=== PATIENT | female | born 1960 | race Caucasian/White ===

== ENCOUNTER 2022-08-18 08:33 | Outpatient (CLI) | payer OTHER, SELFPAY ==
--- NOTE | 2022-08-18 08:55 | MM_ITS ---
WS: [id number] DIAGNOSTIC BILATERAL DIGITAL BREAST TOMOSYNTHESIS MAMMOGRAPHY WITH CAD RIGHT breast ultrasound, limited. HISTORY: Palpable mass. COMPARISON: 09/04/2010 TECHNIQUE: Bilateral craniocaudad, mediolateral oblique, and mediolateral views are submitted with to mosynthesis and SM. Spot compression RIGHT CC and MLO. Computer aided detection utilized. Breast composition: There are scattered areas of fibroglandular density. Large irregular mass of incr eased density in the mid RIGHT breast at 12:00 measures 3.4 x 4.0 cm and extends over a length of 3.7 cm. There are small spiculations extending from the mass. Mild increased tubular extension toward th e nipple. This may be extension of soft tissue through the duct. No lymph nodes are identified but th e axilla are not well included. Asymmetry upper outer LEFT breast is probably normal involution of breast tissue. RIGHT breast ultrasound, limited. Large hypoechoic soft tissue mass with lobulated irregular and angular margins at 12:00, 8 cm from th e nipple. Mass measures 3.1 x 3.9 x 2.4 cm with minimal increased vascularity. Several prominent duct s extending anteriorly from the mass toward the nipple are dilated with increased soft tissue which m ay be tumor extension along the duct. In the RIGHT axilla there is a hypoechoic mass which is probably an abnormal lymph node. The normal r eniform shape and appearance is no longer present and has been replaced. This mass measures 3.8 x 3.9 x 2.7 cm. There is additional enlarged lymph node or dumbbell shaped. MM/[place] [id number] IMPRESSION: BI-RADS: 5-Highly Suggestive of Malignancy FOLLOW UP: Biopsy Recommended 1. Ultrasound-guided biopsy recommended of the soft tissue mass RIGHT breast a t 12:00. 2. RIGHT axillary lymphadenopathy. Recommend ultrasound-guided biopsy also. Notified Sagrario Velázquez at 08/18/2022 10:46 AM.
--- NOTE | 2022-08-18 09:50 | US_ITS ---
WS: [id number] DIAGNOSTIC BILATERAL DIGITAL BREAST TOMOSYNTHESIS MAMMOGRAPHY WITH CAD RIGHT breast ultrasound, limited. HISTORY: Palpable mass. COMPARISON: 09/04/2010 TECHNIQUE: Bilateral craniocaudad, mediolateral oblique, and mediolateral views are submitted with to mosynthesis and SM. Spot compression RIGHT CC and MLO. Computer aided detection utilized. Breast composition: There are scattered areas of fibroglandular density. Large irregular mass of incr eased density in the mid RIGHT breast at 12:00 measures 3.4 x 4.0 cm and extends over a length of 3.7 cm. There are small spiculations extending from the mass. Mild increased tubular extension toward th e nipple. This may be extension of soft tissue through the duct. No lymph nodes are identified but th e axilla are not well included. Asymmetry upper outer LEFT breast is probably normal involution of breast tissue. RIGHT breast ultrasound, limited. Large hypoechoic soft tissue mass with lobulated irregular and angular margins at 12:00, 8 cm from th e nipple. Mass measures 3.1 x 3.9 x 2.4 cm with minimal increased vascularity. Several prominent duct s extending anteriorly from the mass toward the nipple are dilated with increased soft tissue which m ay be tumor extension along the duct. In the RIGHT axilla there is a hypoechoic mass which is probably an abnormal lymph node. The normal r eniform shape and appearance is no longer present and has been replaced. This mass measures 3.8 x 3.9 x 2.7 cm. There is additional enlarged lymph node or dumbbell shaped. US/US breast RT limited* [id number] IMPRESSION: BI-RADS: 5-Highly Suggestive of Malignancy FOLLOW UP: Biopsy Recommended 1. Ultrasound-guided biopsy recommended of the soft tissue mass RIGHT breast a t 12:00. 2. RIGHT axillary lymphadenopathy. Recommend ultrasound-guided biopsy also. Notified Crystal Eber at 08/18/2022 10:46 AM.
== END 2022-08-18 08:34 | disposition home or self-care (01) ==
PROVIDERS: PCP Family Medicine; Visit Provider Nurse Practitioner Family
DX: N63.15 Unspecified lump in the right breast, overlapping quadrants (principal)
CPT/HCPCS: 76642; 77062; G0279

== ENCOUNTER 2022-09-22 12:03 | Outpatient (CLI) | payer OTHER, SELFPAY ==
--- NOTE | 2022-09-22 | US_ITS ---
WS: [id number] ULTRASOUND-GUIDED RIGHT BREAST BIOPSY CLINICAL INFORMATION: MASS OF R BREAST COMPARISON: August 18, 2022 FINDINGS: The procedure including risks, benefits, and complications were discussed with the patient who agreed to proceed. Using sterile technique patient was prepped and draped in the usual sterile fashion. Aft er 1% lidocaine utilizing real-time ultrasound guidance 5 14-gauge cores were obtained of the RIGHT b reast lesion at the 12 o'clock position 8 cm from the nipple. Subsequently a titanium clip was placed in the biopsy cavity. No immediate complications. Ultrasound of the RIGHT axilla demonstrates a large axillary masslike lymph node measuring 3.7 x 3.8 x 2.7 cm with an additional adjacent abnormal lymph node measuring 1.4 x 2.6 x 1.9 CM. Next the largest axillary mass/lymphadenopathy measuring 3.8 cm was selected for biopsy. Three 14-gauge samples were obtained and placed in saline. Titanium clip was placed in the biopsy cav ity. PATHOLOGY DEMONSTRATES RIGHT BREAST MASS: A. Breast, right, 12 o'clock, 8 cm from nipple, ultrasound-guided biopsy: - Poorly differentiated invasive ductal carcinoma. - Smith Hair grade 3 (score 9). 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 - Breast prognostic profile has been performed on lobe reported separately. RIGHT AXILLARY MASS/LYMPHADENOPATHY: Metastatic carcinoma US/US biopsy lymph node breast/ax IMPRESSION: 1. Uncomplicated ultrasound-guided RIGHT breast and axillary biopsy. 2. The pathology demonstrates poorly differentiated INVASIVE DUCTAL carcinoma described above. 3. RIGHT axillary mass/lymphadenopathy demonstrates metastatic carcinoma. 4. Breast prognostic profile is pending. 5. Recommend BREAST SURGERY and ONCOLOGY consultation BI-RADS: 6-Known Biopsy-Proven Malignancy FOLLOW UP: Surgical Biopsy Recommended
--- NOTE | 2022-09-22 12:16 | US_ITS ---
WS: [id number] ULTRASOUND-GUIDED RIGHT BREAST BIOPSY CLINICAL INFORMATION: MASS OF R BREAST COMPARISON: August 18, 2022 FINDINGS: The procedure including risks, benefits, and complications were discussed with the patient who agreed to proceed. Using sterile technique patient was prepped and draped in the usual sterile fashion. Aft er 1% lidocaine utilizing real-time ultrasound guidance 5 14-gauge cores were obtained of the RIGHT b reast lesion at the 12 o'clock position 8 cm from the nipple. Subsequently a titanium clip was placed in the biopsy cavity. No immediate complications. Ultrasound of the RIGHT axilla demonstrates a large axillary masslike lymph node measuring 3.7 x 3.8 x 2.7 cm with an additional adjacent abnormal lymph node measuring 1.4 x 2.6 x 1.9 CM. Next the largest axillary mass/lymphadenopathy measuring 3.8 cm was selected for biopsy. Three 14-gauge samples were obtained and placed in saline. Titanium clip was placed in the biopsy cav ity. PATHOLOGY DEMONSTRATES RIGHT BREAST MASS: A. Breast, right, 12 o'clock, 8 cm from nipple, ultrasound-guided biopsy: - Poorly differentiated invasive ductal carcinoma. - Smith Hair grade 3 (score 9). 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 - Breast prognostic profile has been performed on lobe reported separately. RIGHT AXILLARY MASS/LYMPHADENOPATHY: Metastatic carcinoma US/[place] [id number] IMPRESSION: 1. Uncomplicated ultrasound-guided RIGHT breast and axillary biopsy. 2. The pathology demonstrates poorly differentiated INVASIVE DUCTAL carcinoma described above. 3. RIGHT axillary mass/lymphadenopathy demonstrates metastatic carcinoma. 4. Breast prognostic profile is pending. 5. Recommend BREAST SURGERY and ONCOLOGY consultation BI-RADS: 6-Known Biopsy-Proven Malignancy FOLLOW UP: Surgical Biopsy Recommended
[2022-09-24 14:46] LABS: Lymphoma Profile (BBPL) See Report
[2022-09-26 10:37] LABS: Breast Profile ER,PR,HER2,Ki-6 See Report
== END 2022-09-22 12:04 | disposition home or self-care (01) ==
LOC: RAD 12:10
PROVIDERS: PCP Nurse Practitioner Family; Visit Provider Nurse Practitioner Family
DX: C50.811 Malignant neoplasm of overlapping sites of right female breast; R59.0 Localized enlarged lymph nodes; C50.611 Malignant neoplasm of axillary tail of right female breast
CPT/HCPCS: 19083; 38505; 76942; 88184; 88185; 88305; 88361; 88374

== ENCOUNTER 2022-10-13 07:16 | Oncology outpatient (recurring) (ONCR) | payer OTHER, SELFPAY ==
[2022-10-13 07:31] LABS: Basophils # 0.1 10^3/uL (0.0-0.1); Basophils % 0.9 %; Eosinophils # 0.4 10^3/uL (0.0-0.8); Eosinophils % 3.7 %; Hematocrit 44.6 % (37.0-47.0); Hemoglobin 14.1 g/dL (11.5-15.3); Lymphocytes % 27.8 %; Mean Corpuscular HGB Conc 31.6 g/dL (30.0-36.0); Mean Corpuscular Hemoglobin 30.7 pg (28.0-34.0); Mean Corpuscular Volume 97.2 fl (81-99); Mean Platelet Volume 9.2 fL (7.4-10.4); Monocytes # 0.7 10^3/uL (0.2-0.9); Neutrophils # 6.59 10^3/uL (1.8-7.7); Neutrophils % 61.2 %; Nucleated Red Blood Cells % 0 %; Platelet Count 364 10^3/cmm (130-400); Red Blood Count 4.59 10^6/uL (4.1-5.3); Red Cell Distribution Width 13.1 % (12.1-15.1); White Blood Count 10.8 10^3/uL (4.0-10.0)
[2022-10-13 07:52] LABS: Alanine Aminotransferase 24 U/L (0-33); Albumin Level 3.9 g/dL (3.5-5.2); Alkaline Phosphatase 86 U/L (35-105); Aspartate Amino Transferase 25 U/L (0-32); Blood Urea Nitrogen 9 mg/dL (8-23); Calcium 9.1 mg/dL (8.5-10.5); Carbon Dioxide 23 mmol/L (22-29); Chloride 102 mmol/L (98-107); Globulin 3.8 g/dL (1.3-4.6); Glomerular Filtration Rate 85.4 mL/min (90-130); Glucose 116 mg/dL (65-115); Osmolality Calculated 278 mOsm/kg (285-295); Sodium 134 mmol/L (136-145); Total Bilirubin 0.5 mg/dL (0.15-1.2); Total Protein 7.7 g/dL (6.6-8.7)
== END 2022-10-26 23:59 | disposition home or self-care (01) ==
PROVIDERS: PCP Nurse Practitioner Family; Visit Provider Internal Medicine Hematology & Oncology
DX: C50.811 Malignant neoplasm of overlapping sites of right female breast (principal); Z17.1 Estrogen receptor negative status [ER-]; C77.3 Secondary and unspecified malignant neoplasm of axilla and upper limb lymph nodes; Z80.8 Family history of malignant neoplasm of other organs or systems
CPT/HCPCS: 80053; 85025; 99204

== ENCOUNTER → 2022-11-17 08:19 | Outpatient (BNVA) | payer OTHER, SELFPAY | PROVIDERS: PCP Nurse Practitioner Family; Visit Provider Nurse Practitioner Family | DX: C50.911 Malignant neoplasm of unspecified site of right female breast (principal) | CPT/HCPCS: 99214 ==

== ENCOUNTER 2022-11-18 10:05 | Oncology outpatient (recurring) (ONCR) | payer OTHER, SELFPAY ==
[2022-11-17 08:44] VITALS: BMI 33.5
[2022-11-17 08:46] VITALS: BP 106/72; PULSE 81; RESP 18; TEMP 36.4; O2SAT 96
[2022-11-17 08:49] LABS: Basophils # 0.1 10^3/uL (0.0-0.1); Basophils % 0.8 %; Eosinophils # 0.3 10^3/uL (0.0-0.8); Eosinophils % 2.9 %; Hematocrit 41.8 % (37.0-47.0); Hemoglobin 13.9 g/dL (11.5-15.3); Lymphocytes # 3.7 10^3/uL (0.8-4.8); Lymphocytes % 33.4 %; Mean Corpuscular HGB Conc 33.3 g/dL (30.0-36.0); Mean Corpuscular Volume 93.1 fl (81-99); Mean Platelet Volume 9.5 fL (7.4-10.4); Monocytes # 0.8 10^3/uL (0.2-0.9); Monocytes % 7.2 %; Neutrophils # 6.18 10^3/uL (1.8-7.7); Neutrophils % 55.3 %; Nucleated Red Blood Cells % 0 %; Platelet Count 369 10^3/cmm (130-400); Red Blood Count 4.49 10^6/uL (4.1-5.3); Red Cell Distribution Width 12.8 % (12.1-15.1); White Blood Count 11.2 10^3/uL (4.0-10.0)
[2022-11-17 09:12] LABS: Alanine Aminotransferase 22 U/L (0-33); Albumin Level 3.9 g/dL (3.5-5.2); Alkaline Phosphatase 72 U/L (35-105); Anion Gap 15.2 (5-19); Aspartate Amino Transferase 28 U/L (0-32); Blood Urea Nitrogen 7 mg/dL (8-23); Calcium 9.3 mg/dL (8.5-10.5); Carbon Dioxide 25 mmol/L (22-29); Chloride 101 mmol/L (98-107); Globulin 3.9 g/dL (1.3-4.6); Glucose 133 mg/dL (65-115); Osmolality Calculated 284 mOsm/kg (285-295); Potassium 4.2 mmol/L (3.5-5.1); Sodium 137 mmol/L (136-145); Total Bilirubin 0.6 mg/dL (0.15-1.2); Total Protein 7.8 g/dL (6.6-8.7)
[2022-11-17 10:30] VITALS: BP 124/85; PULSE 78; RESP 16; TEMP 36.1; O2SAT 95
[2022-11-17 11:07] LABS: Thyroid Stimulating Hormone 2.81 uIU/mL (0.27-4.20)
[2022-11-17 11:33] LABS: Hepatitis A Antibody IgM Non-Reactive (Nonreactive); Hepatitis B Core AB, Total Non-Reactive (Nonreactive); Hepatitis B Surface AB 3.5 (11.5-1000); Hepatitis B Surface Antigen Non-Reactive (Nonreactive); Hepatitis C Virus Antibody Non-Reactive (Nonreactive)
[2022-11-18 08:30] VITALS: BP 122/74; PULSE 74; RESP 16; TEMP 36.3; O2SAT 97
[2022-11-18 10:15] VITALS: BP 112/77; PULSE 78; RESP 16; TEMP 36.5; O2SAT 97
[2022-11-18] MEDS: sodium chloride 0.9% 250 ML 50 ML IV (11:00)
[2022-11-18] MEDS: acetaminophen 325 mg Tablet 650 MG PO (11:19)
[2022-11-18] MEDS: diphenhydrAMINE 50 mg/mL SDV 1mL 25 MG IVP (11:20)
[2022-11-18] MEDS: dexamethasone 20 MG in sodium chloride 0.9% 50 ML 188 MG IV (11:20)
[2022-11-18] MEDS: famotidine 20 mg/2 mL INJ IVP (11:22)
[2022-11-18] MEDS: palonosetron 0.25 mg/5 mL SDV IVP (11:25)
[2022-11-18] MEDS: pembrolizumab 200 MG in sodium chloride 0.9% 250 ML 516 MG IV (11:53)
[2022-11-18] MEDS: PACLitaxeL 152 MG in sodium chloride 0.9%(non-DEHP) 250 ML 275.33 MG IV (12:33)
== END 2022-11-18 23:59 | disposition home or self-care (01) ==
PROVIDERS: Nurse Practitioner Family; PCP Nurse Practitioner Family; Visit Provider Internal Medicine Hematology & Oncology
DX: C50.811 Malignant neoplasm of overlapping sites of right female breast (principal); Z17.1 Estrogen receptor negative status [ER-]; R11.0 Nausea; Z79.899 Other long term (current) drug therapy; Z95.828 Presence of other vascular implants and grafts; Z51.12 Encounter for antineoplastic immunotherapy; Z51.11 Encounter for antineoplastic chemotherapy
CPT/HCPCS: 80053; 84443; 85025; 86705; 86706; 86709; 86803; 87340; 96374; 96375; 96413; 96417; 99214; J1100; J1200; J1642; J2469; J3490; J7050; J9267; J9271

== ENCOUNTER 2022-11-26 10:01 | Oncology outpatient (recurring) (ONCR) | payer OTHER, SELFPAY ==
[2022-11-25 10:37] VITALS: BP 121/81; PULSE 90; RESP 16; TEMP 36.3; O2SAT 96
[2022-11-25 11:02] LABS: Basophils # 0.1 10^3/uL (0.0-0.1); Eosinophils # 0.3 10^3/uL (0.0-0.8); Eosinophils % 3.9 %; Hematocrit 39.9 % (37.0-47.0); Hemoglobin 12.9 g/dL (11.5-15.3); Lymphocytes # 3.1 10^3/uL (0.8-4.8); Lymphocytes % 36.5 %; Mean Corpuscular HGB Conc 32.3 g/dL (30.0-36.0); Mean Corpuscular Hemoglobin 30.4 pg (28.0-34.0); Mean Corpuscular Volume 94.1 fl (81-99); Mean Platelet Volume 9.9 fL (7.4-10.4); Monocytes # 0.3 10^3/uL (0.2-0.9); Monocytes % 3.3 %; Neutrophils # 4.58 10^3/uL (1.8-7.7); Neutrophils % 54.8 %; Nucleated Red Blood Cells % 0 %; Platelet Count 420 10^3/cmm (130-400); Red Blood Count 4.24 10^6/uL (4.1-5.3); Red Cell Distribution Width 12.7 % (12.1-15.1); White Blood Count 8.4 10^3/uL (4.0-10.0)
[2022-11-25 11:16] LABS: Alanine Aminotransferase 26 U/L (0-33); Albumin Level 3.9 g/dL (3.5-5.2); Alkaline Phosphatase 85 U/L (35-105); Blood Urea Nitrogen 5 mg/dL (8-23); Calcium 8.9 mg/dL (8.5-10.5); Carbon Dioxide 25 mmol/L (22-29); Chloride 104 mmol/L (98-107); Globulin 3.1 g/dL (1.3-4.6); Glomerular Filtration Rate 85.4 mL/min (90-130); Glucose 114 mg/dL (65-115); Osmolality Calculated 284 mOsm/kg (285-295); Sodium 138 mmol/L (136-145); Total Bilirubin 0.2 mg/dL (0.15-1.2)
[2022-11-25 11:25] LABS: Aspartate Amino Transferase 5 U/L (0-32)
[2022-11-26 10:10] VITALS: BMI 33.5
[2022-11-26 10:13] VITALS: BP 108/74; PULSE 92; RESP 18; TEMP 36.7; O2SAT 96
[2022-11-26] MEDS: alteplase 1 mg/mL SDV 2 mL 2 MG INTRACATH (10:39)
[2022-11-26] MEDS: acetaminophen 325 mg Tablet 650 MG PO (11:12)
[2022-11-26] MEDS: sodium chloride 0.9% 250 ML 75 ML IV (11:13)
[2022-11-26] MEDS: diphenhydrAMINE 50 mg/mL SDV 1mL 25 MG IVP (11:15)
[2022-11-26] MEDS: famotidine 20 mg/2 mL INJ IVP (11:16)
[2022-11-26] MEDS: palonosetron 0.25 mg/5 mL SDV IVP (11:17)
[2022-11-26] MEDS: dexamethasone 20 MG in sodium chloride 0.9% 50 ML 188 MG IV (11:18)
[2022-11-26] MEDS: PACLitaxeL 152 MG in sodium chloride 0.9%(non-DEHP) 250 ML 275.33 MG IV (11:38)
[2022-11-26] MEDS: CARBOplatin 210 MG in sodium chloride 0.9% 500 ML 521 MG IV (12:59)
[2022-11-26 14:13] VITALS: BP 143/97; PULSE 91; RESP 18; TEMP 36.8; O2SAT 97
== END 2022-11-26 23:59 | disposition home or self-care (01) ==
PROVIDERS: Nurse Practitioner Family; PCP Nurse Practitioner Family; Visit Provider Internal Medicine Hematology & Oncology
DX: C50.911 Malignant neoplasm of unspecified site of right female breast (principal); Z51.11 Encounter for antineoplastic chemotherapy
CPT/HCPCS: 36593; 80053; 85025; 96367; 96375; 96413; 96417; 99214; J1100; J1200; J1642; J2469; J2997; J3490; J7040; J7050; J9045; J9267

== ENCOUNTER 2022-12-16 09:30 | Oncology outpatient (recurring) (ONCR) | payer OTHER, SELFPAY ==
[2022-12-02 09:44] VITALS: BP 126/84; PULSE 82; RESP 18; TEMP 37.3; O2SAT 94
[2022-12-02 10:04] LABS: Basophils # 0.1 10^3/uL (0.0-0.1); Eosinophils # 0.1 10^3/uL (0.0-0.8); Eosinophils % 2.3 %; Hematocrit 39.7 % (37.0-47.0); Hemoglobin 12.6 g/dL (11.5-15.3); Lymphocytes # 2.1 10^3/uL (0.8-4.8); Lymphocytes % 39.8 %; Mean Corpuscular HGB Conc 31.7 g/dL (30.0-36.0); Mean Corpuscular Hemoglobin 29.9 pg (28.0-34.0); Mean Corpuscular Volume 94.3 fl (81-99); Mean Platelet Volume 9.4 fL (7.4-10.4); Monocytes # 0.2 10^3/uL (0.2-0.9); Monocytes % 3.5 %; Neutrophils # 2.73 10^3/uL (1.8-7.7); Neutrophils % 52.6 %; Nucleated Red Blood Cells % 0 %; Platelet Count 403 10^3/cmm (130-400); Red Blood Count 4.21 10^6/uL (4.1-5.3); Red Cell Distribution Width 12.9 % (12.1-15.1); White Blood Count 5.2 10^3/uL (4.0-10.0)
[2022-12-02 10:30] LABS: Alanine Aminotransferase 55 U/L (0-33); Albumin Level 3.8 g/dL (3.5-5.2); Alkaline Phosphatase 69 U/L (35-105); Anion Gap 11.5 (5-19); Aspartate Amino Transferase 48 U/L (0-32); Blood Urea Nitrogen 8 mg/dL (8-23); Carbon Dioxide 26 mmol/L (22-29); Chloride 102 mmol/L (98-107); Globulin 3.1 g/dL (1.3-4.6); Glomerular Filtration Rate 85.4 mL/min (90-130); Glucose 97 mg/dL (65-115); Osmolality Calculated 278 mOsm/kg (285-295); Potassium 4.5 mmol/L (3.5-5.1); Sodium 135 mmol/L (136-145); Total Bilirubin 0.5 mg/dL (0.15-1.2); Total Protein 6.9 g/dL (6.6-8.7)
[2022-12-16 09:31] VITALS: BP 134/70; PULSE 88; RESP 18; TEMP 36.2; O2SAT 95
[2022-12-16 09:43] LABS: Basophils # 0.1 10^3/uL (0.0-0.1); Basophils % 1.2 %; Eosinophils # 0.2 10^3/uL (0.0-0.8); Hemoglobin 12.6 g/dL (11.5-15.3); Lymphocytes # 3.2 10^3/uL (0.8-4.8); Lymphocytes % 39.8 %; Mean Corpuscular HGB Conc 32.3 g/dL (30.0-36.0); Mean Corpuscular Volume 95.8 fl (81-99); Monocytes # 0.6 10^3/uL (0.2-0.9); Monocytes % 7.4 %; Neutrophils # 3.98 10^3/uL (1.8-7.7); Neutrophils % 48.7 %; Nucleated Red Blood Cells % 0 %; Platelet Count 348 10^3/cmm (130-400); Red Blood Count 4.07 10^6/uL (4.1-5.3); Red Cell Distribution Width 13.8 % (12.1-15.1); White Blood Count 8.2 10^3/uL (4.0-10.0)
[2022-12-16 09:59] LABS: Alanine Aminotransferase 31 U/L (0-33); Alkaline Phosphatase 85 U/L (35-105); Anion Gap 13.3 (5-19); Aspartate Amino Transferase 26 U/L (0-32); Blood Urea Nitrogen 10 mg/dL (8-23); Carbon Dioxide 25 mmol/L (22-29); Chloride 106 mmol/L (98-107); Globulin 2.7 g/dL (1.3-4.6); Glomerular Filtration Rate 85.1 mL/min (90-130); Glucose 143 mg/dL (65-115); Osmolality Calculated 292 mOsm/kg (285-295); Potassium 4.3 mmol/L (3.5-5.1); Sodium 140 mmol/L (136-145); Total Bilirubin 0.3 mg/dL (0.15-1.2); Total Protein 6.7 g/dL (6.6-8.7)
[2022-12-16] MEDS: acetaminophen 325 mg Tablet 650 MG PO (12:07)
[2022-12-16] MEDS: sodium chloride 0.9% 250 ML 75 ML IV (12:10)
[2022-12-16] MEDS: diphenhydrAMINE 50 mg/mL SDV 1mL 25 MG IVP (12:11)
[2022-12-16] MEDS: famotidine 20 mg/2 mL INJ IVP (12:15)
[2022-12-16] MEDS: palonosetron 0.25 mg/5 mL SDV IVP (12:18)
[2022-12-16] MEDS: dexamethasone 20 MG in sodium chloride 0.9% 50 ML 188 MG IV (12:20)
[2022-12-16] MEDS: pembrolizumab 200 MG in sodium chloride 0.9% 250 ML 516 MG IV (12:49)
[2022-12-16] MEDS: PACLitaxeL 152 MG in sodium chloride 0.9%(non-DEHP) 250 ML 275.33 MG IV (13:32)
[2022-12-16] MEDS: CARBOplatin 210 MG in sodium chloride 0.9% 500 ML 521 MG IV (14:43)
[2022-12-16 15:58] VITALS: BP 138/72; PULSE 76; RESP 18; TEMP 36.1; O2SAT 99
== END 2022-12-16 23:59 | disposition home or self-care (01) ==
PROVIDERS: Nurse Practitioner Family; PCP Nurse Practitioner Family; Visit Provider Internal Medicine Hematology & Oncology
DX: C50.911 Malignant neoplasm of unspecified site of right female breast (principal); Z51.11 Encounter for antineoplastic chemotherapy; Z51.12 Encounter for antineoplastic immunotherapy
CPT/HCPCS: 96413 ×2; 96365; 96375 ×2; 96417; 96376; 96367; 96372; 80053; 85025; 99214; J1100; J1200; J1642; J2469; J3490; J7040; J7050; J9045; J9267; J9271

== ENCOUNTER 2022-12-24 10:00 | Oncology outpatient (recurring) (ONCR) | payer OTHER, SELFPAY ==
[2022-12-23 09:07] VITALS: BP 123/78; PULSE 86; RESP 18; TEMP 36.6; O2SAT 94
[2022-12-23 09:34] LABS: Basophils # 0.1 10^3/uL (0.0-0.1); Eosinophils # 0.3 10^3/uL (0.0-0.8); Eosinophils % 3.1 %; Hematocrit 36.6 % (37.0-47.0); Lymphocytes # 3.5 10^3/uL (0.8-4.8); Lymphocytes % 39.9 %; Mean Corpuscular HGB Conc 32.8 g/dL (30.0-36.0); Mean Corpuscular Hemoglobin 30.9 pg (28.0-34.0); Mean Corpuscular Volume 94.3 fl (81-99); Mean Platelet Volume 9.6 fL (7.4-10.4); Monocytes # 0.4 10^3/uL (0.2-0.9); Monocytes % 4.6 %; Neutrophils # 4.37 10^3/uL (1.8-7.7); Neutrophils % 50.7 %; Nucleated Red Blood Cells % 0 %; Platelet Count 333 10^3/cmm (130-400); Red Blood Count 3.88 10^6/uL (4.1-5.3); Red Cell Distribution Width 13.2 % (12.1-15.1); White Blood Count 8.6 10^3/uL (4.0-10.0)
[2022-12-23 09:52] LABS: Alanine Aminotransferase 20 U/L (0-33); Albumin Level 3.9 g/dL (3.5-5.2); Alkaline Phosphatase 85 U/L (35-105); Anion Gap 13.4 (5-19); Aspartate Amino Transferase 18 U/L (0-32); Blood Urea Nitrogen 11 mg/dL (8-23); Calcium 8.8 mg/dL (8.5-10.5); Carbon Dioxide 26 mmol/L (22-29); Chloride 105 mmol/L (98-107); Globulin 2.8 g/dL (1.3-4.6); Glomerular Filtration Rate 101.6 mL/min (90-130); Glucose 88 mg/dL (65-115); Osmolality Calculated 289 mOsm/kg (285-295); Potassium 4.4 mmol/L (3.5-5.1); Sodium 140 mmol/L (136-145); Total Bilirubin 0.2 mg/dL (0.15-1.2); Total Protein 6.7 g/dL (6.6-8.7)
[2022-12-24] MEDS: dexamethasone 20 MG in sodium chloride 0.9% 50 ML 188 MG IV (11:28)
[2022-12-24] MEDS: acetaminophen 325 mg Tablet 650 MG PO (11:28)
[2022-12-24] MEDS: sodium chloride 0.9% 250 ML 75 ML IV (11:28)
[2022-12-24] MEDS: palonosetron 0.25 mg/5 mL SDV IVP (11:32)
[2022-12-24] MEDS: diphenhydrAMINE 50 mg/mL SDV 1mL 25 MG IVP (11:35)
[2022-12-24] MEDS: famotidine 20 mg/2 mL INJ IVP (11:35)
[2022-12-24] MEDS: PACLitaxeL 152 MG in sodium chloride 0.9%(non-DEHP) 250 ML 275.33 MG IV (12:21)
[2022-12-24] MEDS: CARBOplatin 210 MG in sodium chloride 0.9% 500 ML 521 MG IV (13:39)
[2022-12-24 14:28] VITALS: BP 111/77; PULSE 78; RESP 18; TEMP 36.7; O2SAT 94
[2022-12-24 15:00] VITALS: BP 151/92; PULSE 94; RESP 16; TEMP 35.8; O2SAT 92
== END 2022-12-26 23:59 | disposition home or self-care (01) ==
PROVIDERS: Nurse Practitioner Family; PCP Nurse Practitioner Family; Visit Provider Internal Medicine Hematology & Oncology
DX: Z51.11 Encounter for antineoplastic chemotherapy (principal); C50.911 Malignant neoplasm of unspecified site of right female breast
CPT/HCPCS: 80053; 85025; 96367; 96375; 96413; 96417; J1100; J1200; J1642; J2469; J3490; J7040; J7050; J9045; J9267

== ENCOUNTER 2023-01-13 09:00 | Oncology outpatient (recurring) (ONCR) | payer OTHER, SELFPAY ==
[2023-01-13 08:50] VITALS: BP 117/78; PULSE 95; RESP 18; TEMP 37.2; O2SAT 95
[2023-01-13 09:05] LABS: Basophils # 0.1 10^3/uL (0.0-0.1); Basophils % 1.2 %; Eosinophils # 0.3 10^3/uL (0.0-0.8); Eosinophils % 3.2 %; Hematocrit 35.9 % (37.0-47.0); Hemoglobin 11.9 g/dL (11.5-15.3); Lymphocytes # 4.1 10^3/uL (0.8-4.8); Lymphocytes % 43.8 %; Mean Corpuscular HGB Conc 33.1 g/dL (30.0-36.0); Mean Corpuscular Hemoglobin 30.8 pg (28.0-34.0); Mean Platelet Volume 9.4 fL (7.4-10.4); Neutrophils % 40.5 %; Nucleated Red Blood Cells % 0 %; Platelet Count 276 10^3/cmm (130-400); Red Blood Count 3.86 10^6/uL (4.1-5.3); Red Cell Distribution Width 13.8 % (12.1-15.1); White Blood Count 9.4 10^3/uL (4.0-10.0)
[2023-01-13 09:35] LABS: Alanine Aminotransferase 23 U/L (0-33); Albumin Level 3.9 g/dL (3.5-5.2); Alkaline Phosphatase 79 U/L (35-105); Anion Gap 14.4 (5-19); Aspartate Amino Transferase 21 U/L (0-32); Blood Urea Nitrogen 12 mg/dL (8-23); Calcium 9.5 mg/dL (8.5-10.5); Carbon Dioxide 25 mmol/L (22-29); Chloride 103 mmol/L (98-107); Creatinine Clr Calc Pharmacy 76.2069; Globulin 2.7 g/dL (1.3-4.6); Glomerular Filtration Rate 72.9 mL/min (90-130); Glucose 100 mg/dL (65-115); Osmolality Calculated 286 mOsm/kg (285-295); Potassium 4.4 mmol/L (3.5-5.1); Sodium 138 mmol/L (136-145); Thyroid Stimulating Hormone 3.17 uIU/mL (0.27-4.20); Total Bilirubin 0.2 mg/dL (0.15-1.2); Total Protein 6.6 g/dL (6.6-8.7)
[2023-01-13] MEDS: dexamethasone 20 MG in sodium chloride 0.9% 50 ML 188 MG IV (11:25)
[2023-01-13] MEDS: sodium chloride 0.9% 250 ML 75 ML IV (11:25)
[2023-01-13] MEDS: palonosetron 0.25 mg/5 mL SDV IVP (11:29)
[2023-01-13] MEDS: famotidine 20 mg/2 mL INJ IVP (11:31)
[2023-01-13] MEDS: diphenhydrAMINE 50 mg/mL SDV 1mL 25 MG IVP (11:33)
[2023-01-13] MEDS: acetaminophen 325 mg Tablet 650 MG PO (11:59)
[2023-01-13] MEDS: pembrolizumab 200 MG in sodium chloride 0.9% 250 ML 516 MG IV (12:30)
[2023-01-13] MEDS: [UNRECOGNIZED DRUG - REMARK] 275 MG IV (13:13)
[2023-01-13] MEDS: CARBOplatin 190 MG in sodium chloride 0.9% 500 ML 519 MG IV (14:49)
[2023-01-13 16:00] VITALS: BP 159/100; PULSE 88; RESP 16; TEMP 36; O2SAT 96
[2023-01-13 16:35] VITALS: BMI 33.1
== END 2023-01-13 23:59 | disposition home or self-care (01) ==
PROVIDERS: Nurse Practitioner Family; PCP Nurse Practitioner Family; Visit Provider Internal Medicine Hematology & Oncology
DX: Z51.12 Encounter for antineoplastic immunotherapy (principal); Z51.11 Encounter for antineoplastic chemotherapy; C50.811 Malignant neoplasm of overlapping sites of right female breast; Z17.1 Estrogen receptor negative status [ER-]; C77.3 Secondary and unspecified malignant neoplasm of axilla and upper limb lymph nodes; Z79.899 Other long term (current) drug therapy
CPT/HCPCS: 80053; 84443; 85025; 96361; 96367; 96375; 96413; 96417; 99214; J1100; J1200; J1642; J2469; J3490; J7040; J7050; J9045; J9267; J9271

== ENCOUNTER 2023-01-20 10:05 | Oncology outpatient (recurring) (ONCR) | payer OTHER, SELFPAY ==
[2023-01-20 10:47] VITALS: BP 132/92; PULSE 98; RESP 18; TEMP 36.4; O2SAT 94; BMI 32.5
[2023-01-20 10:55] LABS: Basophils # 0.1 10^3/uL (0.0-0.1); Basophils % 0.8 %; Eosinophils # 0.4 10^3/uL (0.0-0.8); Eosinophils % 5.5 %; Hematocrit 35.9 % (37.0-47.0); Hemoglobin 11.6 g/dL (11.5-15.3); Lymphocytes # 2.7 10^3/uL (0.8-4.8); Lymphocytes % 37.3 %; Mean Corpuscular HGB Conc 32.3 g/dL (30.0-36.0); Mean Corpuscular Hemoglobin 30.6 pg (28.0-34.0); Mean Corpuscular Volume 94.7 fl (81-99); Mean Platelet Volume 9.2 fL (7.4-10.4); Monocytes # 0.2 10^3/uL (0.2-0.9); Neutrophils # 3.82 10^3/uL (1.8-7.7); Neutrophils % 52.8 %; Nucleated Red Blood Cells % 0 %; Platelet Count 220 10^3/cmm (130-400); Red Blood Count 3.79 10^6/uL (4.1-5.3); Red Cell Distribution Width 13.6 % (12.1-15.1); White Blood Count 7.2 10^3/uL (4.0-10.0)
[2023-01-20 11:29] LABS: Alanine Aminotransferase 25 U/L (0-33); Albumin Level 3.7 g/dL (3.5-5.2); Alkaline Phosphatase 54 U/L (35-105); Anion Gap 11.3 (5-19); Aspartate Amino Transferase 25 U/L (0-32); Blood Urea Nitrogen 6 mg/dL (8-23); Carbon Dioxide 27 mmol/L (22-29); Chloride 105 mmol/L (98-107); Globulin 2.6 g/dL (1.3-4.6); Glomerular Filtration Rate 101.6 mL/min (90-130); Glucose 123 mg/dL (65-115); Osmolality Calculated 287 mOsm/kg (285-295); Potassium 4.3 mmol/L (3.5-5.1); Sodium 139 mmol/L (136-145); Total Bilirubin 0.3 mg/dL (0.15-1.2); Total Protein 6.3 g/dL (6.6-8.7)
[2023-01-20] MEDS: sodium chloride 0.9% 250 ML 75 ML IV (13:32)
[2023-01-20] MEDS: acetaminophen 325 mg Tablet 650 MG PO (13:36)
[2023-01-20] MEDS: diphenhydrAMINE 50 mg/mL SDV 1mL 25 MG IVP (13:38)
[2023-01-20] MEDS: palonosetron 0.25 mg/5 mL SDV IVP (13:43)
[2023-01-20] MEDS: famotidine 20 mg/2 mL INJ IVP (13:48)
[2023-01-20] MEDS: dexamethasone 20 MG in sodium chloride 0.9% 50 ML 188 MG IV (13:53)
[2023-01-20] MEDS: [UNRECOGNIZED DRUG - REMARK] 275 MG IV (14:30)
[2023-01-20] MEDS: CARBOplatin 190 MG in sodium chloride 0.9% 500 ML 519 MG IV (15:36)
[2023-01-20 17:00] VITALS: BP 136/91; PULSE 18; RESP 16; TEMP 37; O2SAT 98
== END 2023-01-26 23:59 | disposition home or self-care (01) ==
PROVIDERS: PCP Nurse Practitioner Family; Visit Provider Internal Medicine Hematology & Oncology
DX: Z51.11 Encounter for antineoplastic chemotherapy (principal); C50.811 Malignant neoplasm of overlapping sites of right female breast; Z17.1 Estrogen receptor negative status [ER-]; C77.3 Secondary and unspecified malignant neoplasm of axilla and upper limb lymph nodes; F41.9 Anxiety disorder, unspecified; F31.9 Bipolar disorder, unspecified; Z79.899 Other long term (current) drug therapy; R11.0 Nausea
CPT/HCPCS: 80053; 85025; 96367; 96374; 96375; 96413; 96417; 99214; J1100; J1200; J1642; J2469; J3490; J7040; J7050; J9045; J9267

== ENCOUNTER → 2023-01-27 09:49 | Outpatient (BNVA) | payer OTHER, SELFPAY | PROVIDERS: PCP Nurse Practitioner Family; Visit Provider Nurse Practitioner Family | DX: C50.811 Malignant neoplasm of overlapping sites of right female breast (principal); Z17.1 Estrogen receptor negative status [ER-]; C77.3 Secondary and unspecified malignant neoplasm of axilla and upper limb lymph nodes; D70.1 Agranulocytosis secondary to cancer chemotherapy; T45.1X5A Adverse effect of antineoplastic and immunosuppressive drugs, initial encounter; F41.9 Anxiety disorder, unspecified; F31.9 Bipolar disorder, unspecified; Z79.899 Other long term (current) drug therapy; F10.90 Alcohol use, unspecified, uncomplicated; Z51.11 Encounter for antineoplastic chemotherapy; C50.911 Malignant neoplasm of unspecified site of right female breast | CPT/HCPCS: 99214 ==

== ENCOUNTER 2023-02-03 10:00 | Oncology outpatient (recurring) (ONCR) | payer OTHER, SELFPAY ==
[2023-01-27 10:04] VITALS: BP 112/75; PULSE 98; RESP 17; TEMP 37.3; O2SAT 96
[2023-01-27 10:06] VITALS: BMI 33.3
[2023-01-27 10:29] LABS: Basophils % 0.8 %; Hematocrit 35.9 % (37.0-47.0); Hemoglobin 11.7 g/dL (11.5-15.3); Lymphocytes # 2.3 10^3/uL (0.8-4.8); Lymphocytes % 59.4 %; Mean Corpuscular HGB Conc 32.6 g/dL (30.0-36.0); Mean Corpuscular Hemoglobin 30.8 pg (28.0-34.0); Mean Corpuscular Volume 94.5 fl (81-99); Mean Platelet Volume 9.5 fL (7.4-10.4); Monocytes # 0.2 10^3/uL (0.2-0.9); Monocytes % 3.8 %; Neutrophils # 1.36 10^3/uL (1.8-7.7); Neutrophils % 34.7 %; Nucleated Red Blood Cells % 0 %; Platelet Count 344 10^3/cmm (130-400); Red Cell Distribution Width 13.8 % (12.1-15.1); White Blood Count 3.9 10^3/uL (4.0-10.0)
[2023-01-27 10:42] LABS: Alanine Aminotransferase 28 U/L (0-33); Albumin Level 3.9 g/dL (3.5-5.2); Alkaline Phosphatase 67 U/L (35-105); Anion Gap 13.2 (5-19); Aspartate Amino Transferase 21 U/L (0-32); Blood Urea Nitrogen 8 mg/dL (8-23); Calcium 9.4 mg/dL (8.5-10.5); Carbon Dioxide 25 mmol/L (22-29); Chloride 102 mmol/L (98-107); Globulin 2.6 g/dL (1.3-4.6); Glomerular Filtration Rate 125.4 mL/min (90-130); Glucose 97 mg/dL (65-115); Osmolality Calculated 280 mOsm/kg (285-295); Potassium 4.2 mmol/L (3.5-5.1); Sodium 136 mmol/L (136-145); Total Bilirubin 0.3 mg/dL (0.15-1.2); Total Protein 6.5 g/dL (6.6-8.7)
[2023-01-27] MEDS: acetaminophen 325 mg Tablet 650 MG PO (13:01)
[2023-01-27] MEDS: sodium chloride 0.9% 250 ML 75 ML IV (13:01)
[2023-01-27] MEDS: dexamethasone 20 MG in sodium chloride 0.9% 50 ML 188 MG IV (13:02)
[2023-01-27] MEDS: palonosetron 0.25 mg/5 mL SDV IVP (13:02)
[2023-01-27] MEDS: diphenhydrAMINE 50 mg/mL SDV 1mL 25 MG IVP (13:05)
[2023-01-27] MEDS: famotidine 20 mg/2 mL INJ IVP (13:07)
[2023-01-27] MEDS: [UNRECOGNIZED DRUG - REMARK] 275 MG IV (13:27)
[2023-01-27] MEDS: CARBOplatin 190 MG in sodium chloride 0.9% 500 ML 519 MG IV (14:35)
[2023-01-28] MEDS: filgrastim-sndz 480 mcg/0.8 mL Syringe SUBCUT (11:09)
[2023-01-29 10:46] VITALS: BP 124/84; PULSE 87; RESP 18; TEMP 36.7; O2SAT 97
[2023-01-29] MEDS: filgrastim-sndz 480 mcg/0.8 mL Syringe SUBCUT (10:58)
[2023-02-03 10:09] VITALS: BMI 33.3
[2023-02-03 10:10] VITALS: BP 105/73; PULSE 112; RESP 18; TEMP 37.1; O2SAT 96
[2023-02-03 10:27] LABS: Basophils # 0.1 10^3/uL (0.0-0.1); Basophils % 1.2 %; Eosinophils % 0.5 %; Hematocrit 36.4 % (37.0-47.0); Lymphocytes # 3.5 10^3/uL (0.8-4.8); Lymphocytes % 52.4 %; Mean Corpuscular Hemoglobin 31.5 pg (28.0-34.0); Mean Corpuscular Volume 95.5 fl (81-99); Mean Platelet Volume 9.1 fL (7.4-10.4); Monocytes # 0.7 10^3/uL (0.2-0.9); Neutrophils # 2.28 10^3/uL (1.8-7.7); Neutrophils % 34.4 %; Nucleated Red Blood Cells % 0 %; Platelet Count 387 10^3/cmm (130-400); Red Blood Count 3.81 10^6/uL (4.1-5.3); Red Cell Distribution Width 14.6 % (12.1-15.1); White Blood Count 6.6 10^3/uL (4.0-10.0)
[2023-02-03 11:08] LABS: Alanine Aminotransferase 31 U/L (0-33); Albumin Level 3.9 g/dL (3.5-5.2); Alkaline Phosphatase 86 U/L (35-105); Anion Gap 13.2 (5-19); Aspartate Amino Transferase 28 U/L (0-32); Blood Urea Nitrogen 5 mg/dL (8-23); Calcium 9.4 mg/dL (8.5-10.5); Carbon Dioxide 27 mmol/L (22-29); Chloride 102 mmol/L (98-107); Globulin 2.8 g/dL (1.3-4.6); Glomerular Filtration Rate 101.6 mL/min (90-130); Glucose 127 mg/dL (65-115); Osmolality Calculated 285 mOsm/kg (285-295); Potassium 4.2 mmol/L (3.5-5.1); Sodium 138 mmol/L (136-145); Thyroid Stimulating Hormone 1.57 uIU/mL (0.27-4.20); Total Bilirubin 0.3 mg/dL (0.15-1.2); Total Protein 6.7 g/dL (6.6-8.7)
[2023-02-03] MEDS: sodium chloride 0.9% 250 ML 100 ML IV (13:04)
[2023-02-03] MEDS: famotidine 20 mg/2 mL INJ IVP (13:06)
[2023-02-03] MEDS: acetaminophen 325 mg Tablet 650 MG PO (13:06)
[2023-02-03] MEDS: palonosetron 0.25 mg/5 mL SDV IVP (13:07)
[2023-02-03] MEDS: diphenhydrAMINE 50 mg/mL SDV 1mL 25 MG IVP (13:09)
[2023-02-03] MEDS: dexamethasone 20 MG in sodium chloride 0.9% 50 ML 188 MG IV (13:13)
[2023-02-03] MEDS: pembrolizumab 200 MG in sodium chloride 0.9% 250 ML 516 MG IV (13:32)
[2023-02-03] MEDS: CARBOplatin 230 MG in sodium chloride 0.9% 500 ML 523 MG IV (15:16)
[2023-02-03 16:50] VITALS: BP 152/92; PULSE 99; TEMP 37.1; O2SAT 94
== END 2023-02-03 23:59 | disposition home or self-care (01) ==
PROVIDERS: Internal Medicine Medical Oncology; PCP Nurse Practitioner Family; Visit Provider Nurse Practitioner Family
DX: Z51.12 Encounter for antineoplastic immunotherapy; Z51.11 Encounter for antineoplastic chemotherapy; C50.811 Malignant neoplasm of overlapping sites of right female breast; Z17.1 Estrogen receptor negative status [ER-]; C77.3 Secondary and unspecified malignant neoplasm of axilla and upper limb lymph nodes; R21 Rash and other nonspecific skin eruption; Z79.899 Other long term (current) drug therapy
CPT/HCPCS: 80053; 84443; 85025; 96365; 96367; 96372; 96375; 96413; 96417; 99214; J1100; J1200; J1642; J2469; J3490; J7040; J7050; J9045; J9267; J9271; Q5101

== ENCOUNTER 2023-02-04 11:54 | Outpatient (CLI) | payer OTHER, SELFPAY ==
--- NOTE | 2023-02-04 10:45 | USCV_ITS ---
Jessika Yan Age: 62 Gender: F : 1960 Exam Date: 02/04/2023 12:18 Ordering Phys: Apoorva Resendiz MD Technologist: CT Exam Location: [facility] – [place] Indication: Chemo BP: 135 / 80 HR: 110 Rhythm: Sinus Technical Quality: Adequate MEASUREMENTS (Male / Female) Normal Values 2D ECHO LV Chamber Size 3.7 cm RV Chamber Size 3.0 cm LVOT Diameter 2.0 cm LV Ejection Fraction MOD 2C 58.7 % LV Ejection Fraction 2C AL 58.3 % LA Diameter 3.3 cm LA Width 3.2 cm LA Height 4.4 cm RA Width 3.4 cm RA Height 3.6 cm Aorta at Sinotubular Diameter 2.5 cm IVC Diameter 1.6 cm M-MODE Aortic Annulus Diameter 3.1 cm LA Ao Ratio MM 1.1 MV E Point Septal Separation 1.1 cm DOPPLER AV Peak Velocity 155.0 cm/s LVOT Peak Velocity 116.0 cm/s AV Area Cont Eq vti 3.1 cm squared AV Area Cont Eq pk 2.4 cm squared MV Area PHT 4.4 cm squared Mitral E to A Ratio 0.8 MV E' Velocity 34.0 cm/s Mitral E to MV E' Ratio 6.0 Mitral E to LV E' Lateral Ratio 5.8 Mitral E to LV E' Septal Ratio 6.2 TR Peak Velocity 127.7 cm/s TR Peak Gradient 6.5 mmHg TV Peak E Velocity 83.0 cm/s Right Atrial Pressure 3.0 mmHg Pulmonary Artery Systolic Pressu 9.5 mmHg FINDINGS Left Ventricle Normal left ventricular size, systolic function with no regional wall motion abnormalities. Left ventricular ejection fraction is estimated at 75 %. Abnormal relaxation filling pattern on mitral inflow. Right Ventricle Normal right ventricular size and systolic function. Right ventricular systolic pressure 9.5 mmHg. Right Atrium Normal right atrial size. Left Atrium Normal left atrial size. Mitral Valve Mild mitral annular calcification. Structurally normal mitral valve. No mitral valve stenosis. No mitral valve regurgitation. Aortic Valve Structurally normal trileaflet aortic valve. No aortic valve stenosis. No aortic valve regurgitation. Tricuspid Valve Structurally normal tricuspid valve. No tricuspid valve stenosis. No significant tricuspid valve regurgitation. Pulmonic Valve Pulmonic valve not well visualized. Pericardium Trivial pericardial effusion. No evidence of hemodynamic compromise. Aorta Normal size aortic root and proximal ascending aorta. IVC Normal sized inferior vena cava. CONCLUSIONS 1. Normal left ventricular size, systolic function with no regional wall motion abnormalities. Left ventricular ejection fraction is estimated at 75 %. Abnormal relaxation filling pattern on mitral inflow. 2. Normal right ventricular size and systolic function. 3. No prior similar studies to compare. Inge Person MD (Electronically Signed) Final Date: 04 February 2023 17:36 S
== END 2023-02-04 11:55 | disposition home or self-care (01) ==
LOC: RAD 11:56
PROVIDERS: PCP Nurse Practitioner Family; Visit Provider Internal Medicine Hematology & Oncology
DX: C50.911 Malignant neoplasm of unspecified site of right female breast (principal); Z79.899 Other long term (current) drug therapy; R93.1 Abnormal findings on diagnostic imaging of heart and coronary circulation
CPT/HCPCS: 93306

== ENCOUNTER 2023-02-17 10:00 | Oncology outpatient (recurring) (ONCR) | payer OTHER, SELFPAY ==
[2023-02-17 09:59] VITALS: BMI 33.5
[2023-02-17 10:00] VITALS: BP 120/77; PULSE 105; RESP 18; TEMP 37.3; O2SAT 95
[2023-02-17 10:13] LABS: Hematocrit 33.3 % (37.0-47.0); Hemoglobin 10.6 g/dL (11.5-15.3); Mean Corpuscular HGB Conc 31.8 g/dL (30.0-36.0); Mean Corpuscular Hemoglobin 31.2 pg (28.0-34.0); Mean Corpuscular Volume 97.9 fl (81-99); Mean Platelet Volume 8.7 fL (7.4-10.4); Platelet Count 247 10^3/cmm (130-400); White Blood Count 5.1 10^3/uL (4.0-10.0)
[2023-02-17 10:36] LABS: Alanine Aminotransferase 39 U/L (0-33); Albumin Level 3.5 g/dL (3.5-5.2); Alkaline Phosphatase 70 U/L (35-105); Anion Gap 11.5 (5-19); Aspartate Amino Transferase 29 U/L (0-32); Blood Urea Nitrogen 4 mg/dL (8-23); Calcium 8.7 mg/dL (8.5-10.5); Carbon Dioxide 26 mmol/L (22-29); Chloride 109 mmol/L (98-107); Globulin 2.3 g/dL (1.3-4.6); Glomerular Filtration Rate 101.6 mL/min (90-130); Glucose 127 mg/dL (65-115); Osmolality Calculated 292 mOsm/kg (285-295); Potassium 4.5 mmol/L (3.5-5.1); Sodium 142 mmol/L (136-145); Total Bilirubin 0.3 mg/dL (0.15-1.2); Total Protein 5.8 g/dL (6.6-8.7)
[2023-02-17 10:56] LABS: Slide Review Slide Review Perform
[2023-02-17 10:57] LABS: Absolute Neutrophil 1.5 10^3/cmm (1.4-6.5); Absolute Segmented Neutrophil 1.3 10/cmm (1.6-7.1); Band Neutrophils Absolute 0.2 10^3/cmm (0.0-1.2); Eosinophils 0 %; Lymphocytes 44 %; Lymphocytes Absolute 3.3 10^3/cmm (1.2-3.4); Monocytes Absolute 0.3 10^3/cmm (0.1-0.6); Platelet Estimate Normal (Normal); Segmented Neutrophils 26 %; Total Cells Counted 100 (0-100)
[2023-02-17] MEDS: sodium chloride 0.9% 250 ML 75 ML IV (12:33)
[2023-02-17] MEDS: acetaminophen 325 mg Tablet 650 MG PO (12:39)
[2023-02-17] MEDS: diphenhydrAMINE 50 mg/mL SDV 1mL 25 MG IVP (12:40)
[2023-02-17] MEDS: famotidine 20 mg/2 mL INJ IVP (12:47)
[2023-02-17] MEDS: palonosetron 0.25 mg/5 mL SDV IVP (12:50)
[2023-02-17] MEDS: dexamethasone 20 MG in sodium chloride 0.9% 50 ML 188 MG IV (12:54)
[2023-02-17] MEDS: CARBOplatin 230 MG in sodium chloride 0.9% 500 ML 523 MG IV (14:39)
[2023-02-17 16:03] VITALS: BP 124/83; PULSE 85; RESP 18; TEMP 36.6; O2SAT 93
== END 2023-02-26 23:59 | disposition home or self-care (01) ==
PROVIDERS: Internal Medicine Medical Oncology; PCP Nurse Practitioner Family; Visit Provider Nurse Practitioner Family
DX: Z51.11 Encounter for antineoplastic chemotherapy (principal); C50.911 Malignant neoplasm of unspecified site of right female breast; C77.3 Secondary and unspecified malignant neoplasm of axilla and upper limb lymph nodes; Z17.1 Estrogen receptor negative status [ER-]
CPT/HCPCS: 80053; 85007; 85025; 96368; 96374; 96375; 96413; 96415; 96417; 99214; J1100; J1200; J1642; J2469; J3490; J7040; J7050; J9045; J9267